=== PATIENT | female | born 2000 | race Caucasian/White ===

== ENCOUNTER 2019-03-21 19:19 | Emergency (ER) | payer OTHER ==
[~2019-03-21] VITALS: Ht 152.4 cm; Wt 68.0 kg
== END 2019-03-21 22:53 | disposition home or self-care (01) ==
LOC: ER 19:19
DX: N39.0 Urinary tract infection, site not specified (principal)

== ENCOUNTER 2021-04-26 17:00 | Emergency (ER) | payer OTHER ==
[~2021-04-26] VITALS: Ht 160 cm; Wt 65.8 kg
== END 2021-04-26 21:02 | disposition home or self-care (01) ==
LOC: ER 17:00
DX: J15.7 Pneumonia due to Mycoplasma pneumoniae (principal); N30.90 Cystitis, unspecified without hematuria

== ENCOUNTER 2021-05-09 14:03 | Emergency (ER) | payer OTHER ==
[~2021-05-09] VITALS: Ht 160 cm; Wt 65.8 kg
[2021-05-09] MEDS ORDERED: OSEL75CA PO (18:21)
== END 2021-05-09 18:36 | disposition home or self-care (01) ==
LOC: ER 14:03
DX: B34.9 Viral infection, unspecified (principal); J10.1 Influenza due to other identified influenza virus with other respiratory manifestations; Z20.822 Contact with and (suspected) exposure to COVID-19

== ENCOUNTER 2021-09-13 12:05 | Emergency (ER) | payer OTHER ==
[~2021-09-13] VITALS: Ht 160 cm; Wt 63.5 kg
[~2021-09-13 12:05] MED LIST: OSEL75CA PO
== END 2021-09-13 12:42 | disposition home or self-care (01) ==
LOC: ER 12:05
DX: J15.7 Pneumonia due to Mycoplasma pneumoniae (principal)